=== PATIENT | male | born 1960 | race Caucasian/White ===

== ENCOUNTER → 2016-09-17 | Outpatient (CLI) | payer BC ==
--- NOTE | 2016-09-19 13:55 | CR ---
EXAM DATE: 09/17/16 PATIENT'S AGE: 56 Patient: BENITO ALTMAN Facility: [facility] Site . Site : 1960 Study: XRay-Chest [id number]/7/2017 5:14:34 PM Ordering Physician: Nely Carlson Final Report: INDICATION: cold sypmtoms since 09/12/16 cough; congestion;sore throat; possible fever TECHNIQUE: Chest 2 views. COMPARISON: None. FINDINGS: Cardiovascular and mediastinum: Heart size and vasculature are normal in caliber and appearance. Mediastinum is within normal limits. Lungs and pleural spaces: Lungs are clear. No sign of infiltrate or mass. No sign of pleural effusion. No pneumothorax. Bones and soft tissues: No significant findings. IMPRESSION: Unremarkable chest. Dictated by: Henri Hardy MD @ 09/18/2016 16:55:24 Signed by: Henri Hardy MD @09/18/2016 4:55:24 PM (Electronic Signature) Report Signed by Proxy and Original Signed Document filed in the Medical Record. [facility]
== END ==
LOC: MW.CHIM 16:35
PROVIDERS: ATTEND Internal Medicine
DX: J40 Bronchitis, not specified as acute or chronic (principal)
CPT/HCPCS: 36415; 71020; 71020-26; 85025